=== PATIENT | female | born 1980 | race Caucasian/White ===

== ENCOUNTER 2018-02-12 20:40 | Emergency (ER) | payer MEDICARE, OTHER ==
--- NOTE | 2018-02-12 22:12 | ED ---
General Adult HPI - General Source: patient, RN notes reviewed Mode of arrival: ambulatory Limitations: no limitations <Cody Patel P - Last Filed: 02/12/18 22:19> <Miguelina Rey P - Last Filed: 02/14/18 05:00> - General Chief complaint: Skin/Abscess/Foreign Body Stated complaint: cyst Time Seen by Provider: 02/12/18 21:48 - History of Present Illness Initial comments: 37-year-old female presents to the emergency department for a chief complaint of abscess on her gluteal cleft x 2 hours. Patient states she was went to the bathroom when she noticed her gluteal cleft was painful. Patient states it is draining. Patient denies fevers or chills at home. Patient denies this ever happening before. Patient denies any abscesses anywhere else. Patient denies any current antibiotic use. Patient has no other complaints at this time including shortness of breath, chest pain, abdominal pain, nausea or vomiting, headache, or visual changes. (Cody Patel) - Related Data Home Medications Medication Instructions Recorded Confirmed Atomoxetine HCl [Strattera] 03/30/16 Divalproex Sodium 03/30/16 Methylphenidate HCl 03/30/16 [Methylphenidate ER] Paliperidone [Invega] 03/30/16 lamoTRIgine 03/30/16 Previous Rx's Medication Instructions Recorded Hydrocodone/Acetaminophen [[place] 1 tab PO Q6HR PRN #20 tab 03/30/16 5-325] Sulfamethox-Tmp 800-160Mg [Bactrim 1 each PO Q12HR #20 tab 03/30/16 Ds] Cephalexin [Keflex] 500 mg PO Q12HR #20 cap 02/12/18 Sulfamethox-Tmp 800-160Mg [Bactrim 1 tab PO Q12HR #20 tab 02/12/18 DS 800-160 mg] Allergies Allergy/AdvReac Type Severity Reaction Status Date / Time No Known Allergies Allergy Verified 02/12/18 21:02 Review of Systems ROS Other: All systems not noted in ROS Statement are negative. <Cody Patel P - Last Filed: 02/12/18 22:19> ROS Other: All systems not noted in ROS Statement are negative. <Miguelina Rey P - Last Filed: 02/14/18 05:00> ROS Statement: Those systems with pertinent positive or pertinent negative responses have been documented in the HPI. Past Medical History Past Medical History: Seizure Disorder History of Any Multi-Drug Resistant Organisms: None Reported Past Surgical History: No Surgical Hx Reported Past Psychological History: Bipolar, Depression Smoking Status: Current every day smoker Past Alcohol Use History: Occasional Past Drug Use History: Marijuana <Cody Patel P - Last Filed: 02/12/18 22:19> General Exam Limitations: no limitations General appearance: alert, in no apparent distress Head exam: Present: atraumatic, normocephalic, normal inspection Eye exam: Present: normal appearance. Absent: scleral icterus, conjunctival injection ENT exam: Present: normal exam, mucous membranes moist Neck exam: Present: normal inspection, full ROM. Absent: tenderness, meningismus, lymphadenopathy Respiratory exam: Present: normal lung sounds bilaterally. Absent: respiratory distress, wheezes, rales, rhonchi, stridor Cardiovascular Exam: Present: regular rate, normal rhythm, normal heart sounds. Absent: systolic murmur, diastolic murmur, rubs, gallop, clicks Skin exam: Present: rash (Patient has a 1 cm x 1 cm abscess on the right gluteal cleft with a drainage tract. Purulent material is currently draining. No signs of a cellulitis or spreading redness. No streaking redness.) <Cody Patel P - Last Filed: 02/12/18 22:19> Vital Signs 02/12/18 02/12/18 20:59 22:25 Temperature 98.3 F 98.5 F Pulse Rate 99 98 Respiratory 16 18 Rate Blood Pressure 132/80 136/78 O2 Sat by Pulse 99 98 Oximetry Medical Decision Making <Cody Patel P - Last Filed: 02/12/18 22:19> <Miguelina Rey P - Last Filed: 02/14/18 05:00> - Medical Decision Making 37-year-old female presents to the emergency department for a chief complaint of abscess of the gluteal cleft. Patient has not had this before. No fevers or chills at home. Patient just noticed this today. On exam there is a 1 cm x 1 cm abscess on the right gluteal cleft, freely draining through a tract. At this point as it is draining it does not to be incised and drained. Patient will be put on antibiotics to prevent any cellulitis. However, no evidence of a cellulitis at this time. She will also follow up with general surgery. Patient will return to the emergency Department if she has any worsening symptoms, increasing size in the abscess, or is developing fevers or chills. ( Cody Patel) I was available for consultation in the emergency department. The history and physical exam were done by the midlevel provider. I was consulted for this patient's care. I reviewed the case with the midlevel provider and based on their presentation of the patient, I agree with the assessment, medical decision making and plan of care as documented. (Miguelina Rey) Disposition Is patient prescribed a controlled substance at d/c from ED?: No Time of Disposition: 22:10 <Cody Patel - Last Filed: 02/12/18 22:19> <Miguelina Rey - Last Filed: 02/14/18 05:00> Clinical Impression: Pilonidal sinus with abscess Disposition: HOME SELF-CARE Condition: Good Instructions: Abscess (ED) Additional Instructions: Please take antibiotics as directed. Please apply warm compress to area every few hours. Follow up with general surgeon in 1-2 days. Return to the emergency department if you have any worsening symptoms. Prescriptions: Cephalexin [Keflex] 500 mg PO Q12HR #20 cap Sulfamethox-Tmp 800-160Mg [Bactrim DS 800-160 mg] 1 tab PO Q12HR #20 tab Referrals: Chiara Ferreira MD [STAFF PHYSICIAN] - 1-2 days
[2018-02-12 22:26] VITALS: BP 136/78; PULSE 98; RESP 18; TEMP 98.5
== END 2018-02-12 22:25 | disposition home or self-care (01) ==
LOC: EC 20:40
DX: L05.01 Pilonidal cyst with abscess (principal); G40.909 Epilepsy, unspecified, not intractable, without status epilepticus; F31.9 Bipolar disorder, unspecified; F17.200 Nicotine dependence, unspecified, uncomplicated; Z79.899 Other long term (current) drug therapy
CPT/HCPCS: 99282

== ENCOUNTER 2018-03-12 12:05 | Emergency (ER) | payer MEDICARE, OTHER ==
[2018-03-12 12:31] VITALS: TEMP 98.1
[2018-03-12] MEDS ORDERED: DIPH,PERTUS(ACELL)TETVAC-LF 0.5 ML VIAL IM ONE (12:48)
--- NOTE | 2018-03-12 13:26 | ED ---
General Adult HPI - General Chief complaint: Wound/Laceration Stated complaint: Small Lac on Hand Time Seen by Provider: 03/12/18 13:14 Source: patient, RN notes reviewed Mode of arrival: ambulatory Limitations: no limitations - History of Present Illness Initial comments: Patient 37-year-old female presented to the emergency room today with a chief complaint of a laceration to the thenar eminence of the left hand. She does admit that she was sitting down a tray and extend cut herself. Patient states unsure of her tetanus status. She denies any other complaints. Patient denies any recent fever, chills, shortness of breath, chest pain, back pain, abdominal pain, nausea or vomiting, numbness or tingling, dysuria or hematuria, constipation or diarrhea, headaches or visual changes, or any other complaints. - Related Data Home Medications Medication Instructions Recorded Confirmed Atomoxetine HCl [Strattera] 80 mg PO DAILY 03/30/16 03/12/18 Divalproex Sodium 500 mg PO DAILY 03/30/16 03/12/18 Methylphenidate HCl 27 mg PO DAILY 03/30/16 03/12/18 [Methylphenidate ER] Paliperidone [Invega] 3 mg PO DAILY 03/30/16 03/12/18 lamoTRIgine 200 mg PO DAILY 03/30/16 03/12/18 Allergies Allergy/AdvReac Type Severity Reaction Status Date / Time No Known Allergies Allergy Verified 03/12/18 12:31 Review of Systems ROS Statement: Those systems with pertinent positive or pertinent negative responses have been documented in the HPI. ROS Other: All systems not noted in ROS Statement are negative. Past Medical History Past Medical History: Seizure Disorder History of Any Multi-Drug Resistant Organisms: None Reported Past Surgical History: No Surgical Hx Reported Past Psychological History: Bipolar, Depression Smoking Status: Current every day smoker Past Alcohol Use History: Occasional Past Drug Use History: Marijuana General Exam - General Exam Comments Initial Comments: General: The patient is awake and alert, in no distress, and does not appear acutely ill. Neck: The neck is supple, there is no tenderness or JVD. Musculoskeletal: Full range motion. Sensation intact. Pulses 2+. Strength 5/ 5. Neurological: A&O x 3. CN II-XII intact, There are no obvious motor or sensory deficits. Coordination appears grossly intact. Speech is normal. Skin: 1 cm linear laceration to the thenar eminence. No active bleeding. Wound edges are approximated. Psychiatric: Normal mood and affect. Limitations: no limitations Course Vital Signs 03/12/18 12:29 Temperature 98.1 F Pulse Rate 113 H Respiratory 18 Rate Blood Pressure 108/67 O2 Sat by Pulse 95 Oximetry Disposition Clinical Impression: Laceration Disposition: HOME SELF-CARE Condition: Good Instructions: Laceration (ED) Additional Instructions: Please resides infection. Please return to emergency room for any signs of infection or any other concern. Is patient prescribed a controlled substance at d/c from ED?: No Referrals: [facility] [Primary Care Provider] - 1-2 days Time of Disposition: 13:22
[2018-03-12 13:33] VITALS: BP 133/56; PULSE 98; RESP 20
== END 2018-03-12 13:32 | disposition home or self-care (01) ==
LOC: EC 12:05
DX: S61.412A Laceration without foreign body of left hand, initial encounter (principal); Z23 Encounter for immunization; G40.909 Epilepsy, unspecified, not intractable, without status epilepticus; F31.9 Bipolar disorder, unspecified; F17.200 Nicotine dependence, unspecified, uncomplicated; Z79.899 Other long term (current) drug therapy; W45.8XXA Other foreign body or object entering through skin, initial encounter
CPT/HCPCS: 90471; 90715; 99282

== ENCOUNTER 2018-04-18 10:24 | Emergency (ER) | payer MEDICARE, OTHER ==
[2018-04-18 10:39] VITALS: TEMP 97.6
[2018-04-18] MEDS ORDERED: IPRATROPIUM-ALBUTEROL 3 ML NEB INHALATION STA (10:55)
[2018-04-18] MEDS ORDERED: PROMETHAZ-COD 6.25-10 MG/5 ML 5 ML CUP PO STA (10:55)
[2018-04-18] MEDS ORDERED: methylPREDNISolone SOD SUCCI 125 MG/2 ML VIAL IM ONE (10:55)
[2018-04-18] MEDS ORDERED: guaiFENesin-DM 600/30MG 1 EACH TAB.ER.12H PO STA (10:56)
--- NOTE | 2018-04-18 11:37 | XR ---
EXAMINATION TYPE: XR chest 2V DATE OF EXAM ORDERED: 04/18/2018 HISTORY: Pain. REFERENCE: None. FINDINGS: The lungs are clear. Pleural spaces are clear. Heart size is normal. IMPRESSION: NORMAL CHEST.
--- NOTE | 2018-04-18 12:11 | ED ---
URI HPI - General Chief Complaint: Upper Respiratory Infection Stated Complaint: Cough Time Seen by Provider: 04/18/18 10:52 Source: patient, RN notes reviewed, old records reviewed Mode of arrival: ambulatory Limitations: no limitations - History of Present Illness Initial Comments: Patient is a 37-year-old female who presents emergency department today what you can play of one month of severe coughing. She reports that she'll have coughing fits to put Afia on it. Patient is a smoker. Patient reports that she has had occasional fevers or chills. She say it's an occasional sore throat due to coughing. Patient has had no travel history. No exposure to people with pneumonia that she's aware. - Related Data Home Medications Medication Instructions Recorded Confirmed Atomoxetine HCl [Strattera] 80 mg PO DAILY 03/30/16 03/12/18 Divalproex Sodium 500 mg PO DAILY 03/30/16 03/12/18 Methylphenidate HCl 27 mg PO DAILY 03/30/16 03/12/18 [Methylphenidate ER] Paliperidone [Invega] 3 mg PO DAILY 03/30/16 03/12/18 lamoTRIgine 200 mg PO DAILY 03/30/16 03/12/18 Previous Rx's Medication Instructions Recorded Albuterol Inhaler [Ventolin Hfa 1 - 2 puff INHALATION RT-Q6H PRN 04/18/18 Inhaler] #1 inhaler Azithromycin [Zithromax Z-pack] 250 mg PO DIRECTED #6 tab 04/18/18 guaiFENesin-DM 600/30MG [Mucinex 1 each PO Q12HR #20 tab.er.12h 04/18/18 Dm] predniSONE 10 mg PO DAILY #15 tab 04/18/18 Allergies Allergy/AdvReac Type Severity Reaction Status Date / Time No Known Allergies Allergy Verified 03/12/18 12:31 Review of Systems ROS Statement: Those systems with pertinent positive or pertinent negative responses have been documented in the HPI. ROS Other: All systems not noted in ROS Statement are negative. Constitutional: Reports: fever. Denies: weight change Eyes: Denies: eye pain ENT: Reports: throat pain Respiratory: Reports: cough, dyspnea, wheezes. Denies: hemoptysis, stridor Cardiovascular: Denies: chest pain, palpitations, dyspnea on exertion Endocrine: Denies: fatigue Gastrointestinal: Reports: vomiting. Denies: abdominal pain Genitourinary: Denies: urgency Skin: Denies: rash Neurological: Denies: headache Past Medical History Past Medical History: Seizure Disorder History of Any Multi-Drug Resistant Organisms: None Reported Past Surgical History: No Surgical Hx Reported Past Psychological History: Bipolar, Depression Smoking Status: Current some day smoker Past Alcohol Use History: Occasional Past Drug Use History: Marijuana General Exam - General Exam Comments Initial Comments: 37 year old female. No acute distress. Developemental delay. Limitations: no limitations General appearance: alert, in no apparent distress Head exam: Present: atraumatic, normocephalic, normal inspection Eye exam: Present: normal appearance, PERRL, EOMI. Absent: scleral icterus, conjunctival injection, periorbital swelling ENT exam: Present: normal exam, normal oropharynx, mucous membranes moist Neck exam: Present: normal inspection. Absent: tenderness, meningismus, lymphadenopathy Respiratory exam: Present: wheezes, rhonchi. Absent: normal lung sounds bilaterally Cardiovascular Exam: Present: regular rate, normal rhythm, normal heart sounds. Absent: systolic murmur, diastolic murmur, rubs, gallop, clicks Extremities exam: Present: normal inspection, full ROM, normal capillary refill. Absent: tenderness, pedal edema, joint swelling, calf tenderness Psychiatric exam: Present: normal affect, normal mood Skin exam: Present: warm, dry, intact, normal color. Absent: rash Course Vital Signs 04/18/18 04/18/18 04/18/18 10:33 11:03 11:17 Temperature 97.6 F Pulse Rate 102 H 76 78 Respiratory 18 Rate Blood Pressure 114/78 O2 Sat by Pulse 96 Oximetry 04/18/18 12:19 Temperature Pulse Rate 72 Respiratory 19 Rate Blood Pressure 136/76 O2 Sat by Pulse 100 Oximetry Medical Decision Making - Medical Decision Making 37 year old female with one month of cough, presents with diffuse rhonchi, wheezing. She is a smoker. CXR was normal. She was given double douneb treatment and IM solumedrol and is feeling better. Also given mucinex. Patient will be discharged with steroids, azithromycin, mucinex, and albuterol inhaler. Discussed PCP follow up and return parameters were dsicussed. - Radiology Data Radiology results: report reviewed Normal CXR noted. No evidence of pneumothorax, pleural effusion, pneumonia, or osseous changes. Disposition Clinical Impression: Bronchitis Disposition: HOME SELF-CARE Condition: Good Instructions: Acute Bronchitis (ED) Additional Instructions: Patient is advised to take the medication as prescribed. Follow-up with your primary care physician. Patient must discontinue smoking. Return to the emergency department if any alarming signs or symptoms occur. Prescriptions: Albuterol Inhaler [Ventolin Hfa Inhaler] 1 - 2 puff INHALATION RT-Q6H PRN #1 inhaler PRN Reason: Shortness Of Breath Azithromycin [Zithromax Z-pack] 250 mg PO DIRECTED #6 tab guaiFENesin-DM 600/30MG [Mucinex Dm] 1 each PO Q12HR #20 tab.er.12h predniSONE 10 mg PO DAILY #15 tab Is patient prescribed a controlled substance at d/c from ED?: No Referrals: [facility] [Primary Care Provider] - 1-2 days Time of Disposition: 12:10
[2018-04-18 12:20] VITALS: BP 136/76; PULSE 72; RESP 19
== END 2018-04-18 12:20 | disposition home or self-care (01) ==
LOC: EC 10:24
DX: J40 Bronchitis, not specified as acute or chronic (principal); G40.909 Epilepsy, unspecified, not intractable, without status epilepticus; F31.9 Bipolar disorder, unspecified; F17.200 Nicotine dependence, unspecified, uncomplicated; Z79.899 Other long term (current) drug therapy; Z53.8 Procedure and treatment not carried out for other reasons
CPT/HCPCS: 94640; 71046; 99284; 96372; J2930

== ENCOUNTER 2018-07-19 14:50 | Emergency (ER) | payer MEDICARE, OTHER ==
[2018-07-19 14:58] VITALS: BP 104/76; PULSE 101; RESP 18; TEMP 98.4
--- NOTE | 2018-07-19 15:15 | ED ---
Skin/Abscess/FB HPI - General Chief complaint: Skin/Abscess/Foreign Body Stated complaint: Female Time Seen by Provider: 07/19/18 15:02 Source: patient, RN notes reviewed, old records reviewed Mode of arrival: ambulatory Limitations: no limitations - History of Present Illness Initial comments: Is a 37-year-old female with a developmental delay presents for his work today with complaints of infection in her buttocks. Patient reports that she's had this before. She states that she's noticed some drainage and bleeding and buttocks. Patient states that she has had straining for the past few days. She denies any chest distress by fevers or chills. She denies a change in urination or bowel habits. - Related Data Home Medications Medication Instructions Recorded Confirmed Atomoxetine HCl [Strattera] 80 mg PO DAILY 03/30/16 03/12/18 Divalproex Sodium 500 mg PO DAILY 03/30/16 03/12/18 Methylphenidate HCl 27 mg PO DAILY 03/30/16 03/12/18 [Methylphenidate ER] Paliperidone [Invega] 3 mg PO DAILY 03/30/16 03/12/18 lamoTRIgine 200 mg PO DAILY 03/30/16 03/12/18 Previous Rx's Medication Instructions Recorded Albuterol Inhaler [Ventolin Hfa 1 - 2 puff INHALATION RT-Q6H PRN 04/18/18 Inhaler] #1 inhaler Azithromycin [Zithromax Z-pack] 250 mg PO DIRECTED #6 tab 04/18/18 guaiFENesin-DM 600/30MG [Mucinex 1 each PO Q12HR #20 tab.er.12h 04/18/18 Dm] predniSONE 10 mg PO DAILY #15 tab 04/18/18 Mupirocin 2% Oint [Bactroban 2% 1 applic TOPICAL TID #60 gm 07/19/18 Oint] Sulfamethox-Tmp 800-160Mg [Bactrim 1 tab PO Q12HR #20 tab 07/19/18 DS 800-160 mg] Allergies Allergy/AdvReac Type Severity Reaction Status Date / Time No Known Allergies Allergy Verified 07/19/18 14:54 Review of Systems ROS Statement: Those systems with pertinent positive or pertinent negative responses have been documented in the HPI. ROS Other: All systems not noted in ROS Statement are negative. Past Medical History Past Medical History: Seizure Disorder History of Any Multi-Drug Resistant Organisms: None Reported Past Surgical History: No Surgical Hx Reported Past Psychological History: Bipolar, Depression Smoking Status: Current some day smoker Past Alcohol Use History: Occasional Past Drug Use History: Marijuana General Exam - General Exam Comments Initial Comments: 37-year-old female. Alert and oriented. No distress. General: Well appearing, well nourished, in no distress. Oriented x 3, normal mood and affect . Ambulating without difficulty. Skin: Good turgor, no rash, unusual bruising or prominent lesions Hair: Normal texture and distribution. HEENT: Head: Normocephalic, atraumatic, no visible or palpable masses, depressions, or scaring. Eyes: Visual acuity intact, conjunctiva clear, sclera non-icteric, EOM intact, PERRL. Ears: EACs clear, TMs translucent & cone of light visualized. hearing intact. Nose: No external lesions, mucosa non-inflamed, septum and turbinates normal Mouth: Mucous membranes moist, no mucosal lesions. Teeth/Gums: No obvious caries or periodontal disease. No gingival inflammation or significant resorption. Pharynx: Mucosa non-inflamed, no tonsillar hypertrophy or exudate Neck: Supple, without lesions, bruits, or adenopathy, thyroid non-enlarged and non-tender Heart: No cardiomegaly or thrills; regular rate and rhythm, no murmur or gallop Lungs: Clear to auscultation and percussion Abdomen: Bowel sounds normal, no tenderness, organomegaly, masses, or hernia Back: Spine normal without deformity. She has a libertarian draining pilonidal abscess. No area of fluctuance that can be drained. No bleeding at the site. Extremities: No amputations or deformities, cyanosis, edema or varicosities, peripheral pulses intact Musculoskeletal: Normal gait and station. No misalignment, asymmetry, crepitation, defects, tenderness, masses, effusions, decreased range of motion, instability, atrophy or abnormal strength or tone in the head, neck, spine, ribs , pelvis or extremities. Neurologic: CN 2-12 normal. Sensation to pain, touch, and proprioception normal. DTRs normal in upper and lower extremities. No pathologic reflexes. Psychiatric: Oriented X3, intact recent and remote memory, judgment and insight , normal mood and affect. Limitations: no limitations Course Vital Signs 07/19/18 14:54 Temperature 98.4 F Pulse Rate 101 H Respiratory 18 Rate Blood Pressure 104/76 O2 Sat by Pulse 98 Oximetry Medical Decision Making - Medical Decision Making 37 rolled female present today with complaints of a pilonidal abscess. Patient site his or any open and draining. There is no bleeding at this time. Discussed that does not need to be cut open further at this time. Did discuss the Patient will be started on antibiotics and antibiotic cream and was doing warm compresses over the area. Patient has been advised to follow-up with a surgeon. Patient agrees to treatment plan will comply. Disposition Clinical Impression: Pilonidal abscess Disposition: HOME SELF-CARE Condition: Good Instructions (If sedation given, give patient instructions): Pilonidal Cyst (ED ) Additional Instructions: Patient advised to take antibiotics. Follow-up with surgeon. We'll apply warm compresses over the area. Return to the emergency department if any alarming signs or symptoms occur. Prescriptions: Mupirocin 2% Oint [Bactroban 2% Oint] 1 applic TOPICAL TID #60 gm Sulfamethox-Tmp 800-160Mg [Bactrim DS 800-160 mg] 1 tab PO Q12HR #20 tab Is patient prescribed a controlled substance at d/c from ED?: No Referrals: [facility] [Primary Care Provider] - 1-2 days Yusuf Roberts MD [STAFF PHYSICIAN] - 1-2 days Time of Disposition: 15:15
== END 2018-07-19 15:18 | disposition home or self-care (01) ==
LOC: EC 14:50
DX: L05.01 Pilonidal cyst with abscess (principal); G40.909 Epilepsy, unspecified, not intractable, without status epilepticus; F31.9 Bipolar disorder, unspecified; F17.200 Nicotine dependence, unspecified, uncomplicated; Z79.899 Other long term (current) drug therapy
CPT/HCPCS: 99283

== ENCOUNTER 2019-03-26 19:47 | Emergency (ER) | payer MEDICARE, OTHER ==
--- NOTE | 2019-03-26 20:14 | ED ---
Psych HPI - General Chief Complaint: Psychiatric Symptoms Stated Complaint: Mental Health Source: patient, police Mode of arrival: ambulatory - History of Present Illness Initial Comments: 38 yo female presenting for court ordered pickup for psych evaluation. Patient has history of bipolar. Patient states she is compliant with meds tries to sucidial or homicidal ideations. Has hallucinations or hearing voices. Patient denies any insomnia. Patient said she is unsure why she is here. Had a court ordered pickup because her neighbor wrote a note petitioning patient for psychiatric evaluation. Neighbor states that patient appears acutely psychotic. Patient does not appear acutely psychotic and very cooperative on arrival. No complaints appears well patient is not intoxicated. - Related Data Home Medications Medication Instructions Recorded Confirmed lamoTRIgine 200 mg PO BID 03/30/16 03/26/19 Atomoxetine HCl [Strattera] 100 mg PO HS 03/26/19 03/26/19 Escitalopram [Lexapro] 20 mg PO DAILY 03/26/19 03/26/19 Melatonin 3 mg PO HS 03/26/19 03/26/19 Paliperidone [Invega] 3 mg PO HS 03/26/19 03/26/19 Allergies Allergy/AdvReac Type Severity Reaction Status Date / Time No Known Allergies Allergy Verified 03/26/19 20:27 Review of Systems ROS Statement: Those systems with pertinent positive or pertinent negative responses have been documented in the HPI. ROS Other: All systems not noted in ROS Statement are negative. Past Medical History Past Medical History: Seizure Disorder History of Any Multi-Drug Resistant Organisms: None Reported Past Surgical History: No Surgical Hx Reported Past Psychological History: Bipolar, Depression Smoking Status: Current some day smoker Past Alcohol Use History: Occasional Past Drug Use History: Marijuana General Exam - General Exam Comments Initial Comments: General: The patient is awake and alert, in no distress, and does not appear acutely ill. Eye: Pupils are equal, round and reactive to light, extra-ocular movements are intact. No nystagmus. There is normal conjunctiva bilaterally. No signs of icterus. Ears, nose, mouth and throat: There are moist mucous membranes and no oral lesions. Neck: The neck is supple, there is no tenderness or JVD. Cardiovascular: There is a regular rate and rhythm. No murmur, rub or gallop is appreciated. Respiratory: Lungs are clear to auscultation, respirations are non-labored, breath sounds are equal. No wheezes, stridor, rales, or rhonchi. Gastrointestinal: Soft, non-distended, non-tender abdomen without masses or organomegaly noted. There is no rebound or guarding present. Musculoskeletal: Normal ROM, no tenderness. Strength 5/5. Sensation intact. Pulses equal bilaterally 2+. Neurological: A&O x 3. CN II-XII intact, There are no obvious motor or sensory deficits. Coordination appears grossly intact. Speech is normal. Skin: Skin is warm and dry and no rashes or lesions are noted. Psychiatric: Cooperative, appropriate mood & affect, normal judgment. Limitations: no limitations Course Vital Signs 03/26/19 03/26/19 19:51 21:12 Temperature 97.3 F L 98.6 F Pulse Rate 118 H 81 Respiratory 18 17 Rate Blood Pressure 130/84 145/85 O2 Sat by Pulse 98 99 Oximetry Medical Decision Making - Medical Decision Making Very well-appearing 38-year-old female history of bipolar. Compliant with medications. There was a note written a palpation by a neighbor, it is known that patient frequently argues with this neighbor. There is not appear to be a reason why patient was ordered for psychiatric evaluation. Patient is not suicidal or homicidal. Patient has not been an physical altercations or endangering other people's lives. Patient denies any complaints. She appears well she does not appear acutely psychotic. Patient is not intoxicated. Does not appear to be under the influence of drugs. Physical examination unremarkable. ETOH (-). EPS clear for evaluation. EPS contacted [facility]/psychiatrist recommended discharge with outpatient f/u at [facility].Discussed case with Bob Cerda pt discharged appearing well. Disposition Clinical Impression: Evaluation by psychiatric service required Disposition: HOME SELF-CARE Condition: Good Additional Instructions: Please use medication as discussed. Please follow-up with family doctor in the next 2 days. Please return to emergency room if the symptoms increase or worsen or for any other concerns. Is patient prescribed a controlled substance at d/c from ED?: No Referrals: None,Stated [Primary Care Provider] - 1-[facility] days [facility] - 1-2 days Time of Disposition: 20:56
[2019-03-26 21:15] VITALS: BP 145/85; PULSE 81; RESP 17; TEMP 98.6
== END 2019-03-26 21:15 | disposition home or self-care (01) ==
LOC: EC 19:47
DX: Z00.8 Encounter for other general examination (principal); R45.851 Suicidal ideations; R45.850 Homicidal ideations; R44.0 Auditory hallucinations; F31.9 Bipolar disorder, unspecified; F17.200 Nicotine dependence, unspecified, uncomplicated; G40.909 Epilepsy, unspecified, not intractable, without status epilepticus; Z79.899 Other long term (current) drug therapy
CPT/HCPCS: 82075; 99285

== ENCOUNTER 2023-03-30 14:19 | Emergency (ER) | payer MEDICARE, OTHER ==
--- NOTE | 2023-03-30 14:36 | ED ---
Female Urogenital HPI - General Source: patient, RN notes reviewed Mode of arrival: ambulatory Limitations: no limitations - History of Present Illness MD Complaint: possible STD <Serena Franklin - Last Filed: 03/30/23 14:37> <Rafael Hodge - Last Filed: 03/30/23 16:12> - General Chief complaint: Urogenital Stated complaint: STD testing Time Seen by Provider: 03/30/23 14:37 - History of Present Illness Initial comments: This is a 42 year old female who presents to the emergency department for STD testing. She had sexual intercourse with a new individual and was later told that he was also having sex with other women, and is concerned about brad an STD, and would like to be tested. Denies any pelvic pain, vaginal bleeding, or vaginal discharge. (Serena Franklin) A 42-year-old female presents to the ED with chief complaint of STD testing. Patient states that she recently had sex with a new partner. States that she heard from another person that this person she had sex with may have had sex with another person known to have gonorrhea. Reports that since having sex with this person has not had any vaginal discharge, dysuria, vaginal bleeding, lesions, rash, or otherwise has no experienced any new symptoms however is concerned and would like to get tested for STDs. Denies fever. No other complaints. (Rafael Hodge) - Related Data Home Medications Medication Instructions Recorded Confirmed Atomoxetine HCl [Strattera] 100 mg PO HS 03/26/19 08/17/22 Escitalopram [Lexapro] 20 mg PO DAILY 03/26/19 08/17/22 Melatonin 6 mg PO HS 03/26/19 08/17/22 Paliperidone [Invega] 3 mg PO HS 03/26/19 08/17/22 Albuterol Sulfate [Albuterol 2 puff PO RT-QID PRN 08/17/22 08/17/22 Sulfate Hfa] Previous Rx's Medication Instructions Recorded Amoxic-Pot Clav 875-125Mg 1 each PO Q12HR 9 Days #18 tab 08/19/22 [Augmentin 875-125] Aspirin 81 mg PO DAILY 30 Days #30 tab 08/19/22 lamoTRIgine [LaMICtal] 200 mg PO BID 30 Days #120 tab 08/19/22 Allergies Allergy/AdvReac Type Severity Reaction Status Date / Time No Known Allergies Allergy Verified 03/30/23 14:41 Review of Systems ROS Other: All systems not noted in ROS Statement are negative. <Serena Franklin - Last Filed: 03/30/23 14:37> ROS Other: All systems not noted in ROS Statement are negative. <Rafael Hodge - Last Filed: 03/30/23 16:12> ROS Statement: Those systems with pertinent positive or pertinent negative responses have been documented in the HPI. Past Medical History Past Medical History: Seizure Disorder History of Any Multi-Drug Resistant Organisms: None Reported Past Surgical History: No Surgical Hx Reported Additional Past Surgical History / Comment(s): dental Past Psychological History: Bipolar, Depression Smoking Status: Current every day smoker Past Alcohol Use History: Occasional Past Drug Use History: Marijuana <Serena Franklin - Last Filed: 03/30/23 14:37> General Exam <Serena Franklin - Last Filed: 03/30/23 14:37> General appearance: alert, in no apparent distress Eye exam: Present: normal appearance Neck exam: Present: normal inspection Respiratory exam: Present: normal lung sounds bilaterally Cardiovascular Exam: Present: regular rate, normal rhythm GI/Abdominal exam: Present: soft (No Tenderness to palpation. No rebound guarding or rigidity.) External exam: Present: other (Chaperoned by Linda MENDOZA. No discharge. Skin surrounding the cervix appears pink with no lesions. No adnexal tenderness. No cervical tenderness. No lesions.) Neurological exam: Present: alert, oriented X3 Skin exam: Present: warm, dry <Rafael Hodge - Last Filed: 03/30/23 16:12> - General Exam Comments Initial Comments: Visual Physical Exam Vital signs reviewed General: Well-appearing, nontoxic, no acute distress. Head: Normocephalic, atraumatic Eyes: PERRLA, EOMI ENT: Airway patent Chest: Nonlabored breathing Skin: No visual rash, normal skin tone Neuro: Alert and oriented 3 Musculoskeletal: No gross abnormalities I performed the QuickNote portion of this chart. Signed Serena Franklin PA-C. (Serena Franklin) Course Vital Signs 03/30/23 14:35 Temperature 98.1 F Pulse Rate 95 Respiratory 18 Rate Blood Pressure 114/83 O2 Sat by Pulse 96 Oximetry Medical Decision Making <Rafael Hodge - Last Filed: 03/30/23 16:12> - Medical Decision Making Was pt. sent in by a medical professional or institution (ALEX Marcano, SHORER, urgent care, hospital, or [facility]...) When possible be specific @ -No Did you speak to anyone other than the patient for history (EMS, parent, family, police, friend...)? What history was obtained from this source @ -No Did you review nursing and triage notes (agree or disagree)? Why? @ -I reviewed and agree with nursing and triage notes Were old charts reviewed (outside hosp., previous admission, EMS record, old EKG, old radiological studies, urgent care reports/EKG's, [facility] records)? Report findings @ -No old charts were reviewed Differential Diagnosis (chest pain, altered mental status, abdominal pain women, abdominal pain men, vaginal bleeding, weakness, fever, dyspnea, syncope, headache, dizziness, GI bleed, back pain, seizure, CVA, palpatations, mental h ealth, musculoskeletal)? @ -Gonorrhea, chlamydia, syphilis, pelvic inflammatory disease. This is not meant to be an all-inclusive list. EKG interpreted by me (3pts min.). @ -None X-rays interpreted by me (1pt min.). @ -None done CT interpreted by me (1pt min.). @ -None done U/S interpreted by me (1pt. min.). @ -None done What testing was considered but not performed or refused? (CT, X-rays, U/S, labs)? Why? @ -None What meds were considered but not given or refused? Why? @ -None Did you discuss the management of the patient with other professionals (professionals i.e. ALEX Marcano, SHORER, lab, RT, psych nurse, 7th grade social studies teacher, backrest assembler, teacher, gifts officer, case therapist)? Give summary @ -No Was smoking cessation discussed for >3mins.? @ -No Was critical care preformed (if so, how long)? @ -No Were there social determinants of health that impacted care today? How? (Homelessness, low income, unemployed, alcoholism, drug addiction, transportation, low edu. Level, literacy, decrease access to med. care, half-way, rehab)? @ -No Was there de-escalation of care discussed even if they declined (Discuss DNR or withdrawal of care, Hospice)? DNR status @ -No What co-morbidities impacted this encounter? (DM, HTN, Smoking, COPD, CAD, Cancer, CVA, ARF, Chemo, Hep., AIDS, mental health diagnosis, sleep apnea, morbid obesity)? @ -None Was patient admitted / discharged? Hospital course, mention meds given and route, prescriptions, significant lab abnormalities, going to OR and other pertinent info. @ -Discharge 42-year-old female presenting with concerns of STD. Has had no discharge, urinary symptoms, new rash or lesions. Pelvic exam unremarkable. Patient empirically treated for gonorrhea and chlamydia. Swab obtained to test for gonorrhea, chlamydia, Trichomonas. Blood sample obtained to test for syphilis. Patient discharged home in stable condition. Advised follow-up with the health department for comprehensive STD testing. Discussed return precautions with patient who verbalizes agreement. Undiagnosed new problem with uncertain prognosis? @ -No Drug Therapy requiring intensive monitoring for toxicity (Heparin, Nitro, Insulin, Cardizem)? @ -No Were any procedures done? @ -No Diagnosis/symptom? @ -High-risk heterosexual behavior, concern for STD Acute, or Chronic, or Acute on Chronic? @ -Acute Uncomplicated (without systemic symptoms) or Complicated (systemic symptoms)? @ -Uncomplicated Side effects of treatment? @ -No Exacerbation, Progression, or Severe Exacerbation? @ -No Poses a threat to life or bodily function? How? (Chest pain, [place], [place], pneumonia, PE, COPD, DKA, ARF, appy, cholecystitis, CVA, Diverticulitis, Homicidal, Suicidal, threat to staff... and all critical care pts) @ -No (Rafael Hodge) - Lab Data Lab Results 03/30/23 03/30/23 Range/Units 15:00 15:00 Urine Color Colorless Urine Appearance Clear (Clear) Urine pH 6.0 (5.0-8.0) Ur Specific [place] 1.006 (1.001-1.035) Urine Protein Negative (Negative) Urine Glucose (UA) Negative (Negative) Urine Ketones Negative (Negative) Urine Blood Negative (Negative) Urine Nitrite Negative (Negative) Urine Bilirubin Negative (Negative) Urine Urobilinogen <2.0 (<2.0) mg/dL Ur Leukocyte Esterase Negative (Negative) Urine HCG, Qual Not Detected (Not Detectd) Disposition <Serena Franklin - Last Filed: 03/30/23 14:37> Is patient prescribed a controlled substance at d/c from ED?: No Time of Disposition: 16:12 <Rafael Hodge - Last Filed: 03/30/23 16:12> Clinical Impression: High risk heterosexual behavior, Encounter for screening for infections with a predominantly sexual mode of transmission Disposition: HOME SELF-CARE Condition: Good Instructions (If sedation given, give patient instructions): Sexually Transmitted Diseases (ED), Safe Sex Practices (ED) Additional Instructions: Please return to the Emergency Department if symptoms worsen or any other concerns. [facility]errals[facility] [Primary Care Provider] - 1-2 days
[2023-03-30 14:45] VITALS: RESP 18
[2023-03-30 15:06] LABS: Appearance,Urine Clear (Clear); Bilirubin,Urine Negative (Negative); Blood,Urine Negative (Negative); Color,Urine Colorless; Glucose,Urine (UA) Negative (Negative); Ketones,Urine Negative (Negative); Leukocyte Esterase,Urine Negative (Negative); Nitrite,Urine Negative (Negative); Protein,Urine Negative (Negative); Specific Gravity,Urine 1.006 (1.001-1.035); Urobilinogen,Urine <2.0 mg/dL (<2.0)
[2023-03-30] MEDS ORDERED: cefTRIAXone 1,000 MG VIAL (IM USE) IM STA (15:47)
[2023-03-30] MEDS ORDERED: AZITHROMYCIN 500 MG TAB PO STA (15:50)
[2023-03-30 17:16] VITALS: BP 108/71; PULSE 86; TEMP 98.3
[2023-03-31 14:12] LABS: C. trachomatis,PCR Negative (Negative)
[2023-03-31 14:15] LABS: N. gonorrhoeae,PCR Negative (Negative)
== END 2023-03-30 17:07 | disposition home or self-care (01) ==
LOC: EC 14:19
DX: Z11.3 Encounter for screening for infections with a predominantly sexual mode of transmission (principal); Z72.51 High risk heterosexual behavior; F31.9 Bipolar disorder, unspecified; F17.200 Nicotine dependence, unspecified, uncomplicated; F12.90 Cannabis use, unspecified, uncomplicated; Z79.899 Other long term (current) drug therapy
CPT/HCPCS: 36415; 81003; 81025; 87808; 87491; 87591; 86780; 99283; 96372; J0696

== ENCOUNTER 2023-08-13 17:34 | Emergency (ER) | payer MEDICARE, OTHER ==
[2023-08-13 18:47] VITALS: BP 118/71; PULSE 99; RESP 16; TEMP 97.8
--- NOTE | 2023-08-13 20:14 | ED ---
General Adult HPI - General Chief complaint: Recheck/Abnormal Lab/Rx Stated complaint: medication refill/ mental health Time Seen by Provider: 08/13/23 19:13 Source: patient Mode of arrival: ambulatory Limitations: no limitations - History of Present Illness Initial comments: 42-year-old female presenting to the ED with a chief complaint of medication re fill. Patient initially very upset and does not provide history. Eventually, she pulled out the medication list and pointed to her medication and stated that she needs a refill. States she is due to see [facility] on Thursday but cannot wait. Denies chest pain shortness of breath fever chills. No other complaints at this time. - Related Data Home Medications Medication Instructions Recorded Confirmed Melatonin 6 mg PO HS 03/26/19 08/17/22 Previous Rx's Medication Instructions Recorded Amoxic-Pot Clav 875-125Mg 1 each PO Q12HR 9 Days #18 tab 08/19/22 [Augmentin 875-125] Aspirin 81 mg PO DAILY 30 Days #30 tab 08/19/22 Albuterol Sulfate [Albuterol 2 puff PO RT-QID PRN #1 each 04/05/23 Sulfate Hfa] Atomoxetine HCl [Strattera] 100 mg PO HS #14 cap 04/05/23 Escitalopram [Lexapro] 20 mg PO DAILY #14 tab 04/05/23 Fluticasone Propionate 220 Mcg 2 puff INHALATION RT-BID #12 gm 04/05/23 [Flovent 220 Mcg Inhaler] Ibuprofen [Motrin] 400 mg PO Q6HR PRN #30 tab 04/05/23 Melatonin 6 mg PO HS #28 tablet 04/05/23 Paliperidone [Invega] 3 mg PO HS #14 tab 04/05/23 lamoTRIgine [LaMICtal] 200 mg PO BID #56 tab 04/05/23 Ondansetron Odt [Zofran Odt] 8 mg PO Q8HR PRN #15 tab 04/06/23 Escitalopram [Lexapro] 10 mg PO DAILY #6 tablet 08/13/23 Allergies Allergy/AdvReac Type Severity Reaction Status Date / Time No Known Allergies Allergy Verified 04/06/23 22:08 Review of Systems ROS Statement: Those systems with pertinent positive or pertinent negative responses have been documented in the HPI. ROS Other: All systems not noted in ROS Statement are negative. Past Medical History Past Medical History: Seizure Disorder History of Any Multi-Drug Resistant Organisms: None Reported Past Surgical History: No Surgical Hx Reported Additional Past Surgical History / Comment(s): dental Past Psychological History: Bipolar, Depression Smoking Status: Current every day smoker Past Alcohol Use History: Occasional Past Drug Use History: Marijuana General Exam Limitations: no limitations General appearance: alert, anxious Neck exam: Present: normal inspection Respiratory exam: Present: normal lung sounds bilaterally Cardiovascular Exam: Present: regular rate, normal rhythm GI/Abdominal exam: Present: soft Neurological exam: Present: alert Psychiatric exam: Present: agitated Skin exam: Present: warm, dry Course Vital Signs 08/13/23 17:37 Temperature 97.8 F Pulse Rate 99 Respiratory 16 Rate Blood Pressure 118/71 O2 Sat by Pulse 97 Oximetry Medical Decision Making - Medical Decision Making Was pt. sent in by a medical professional or institution (Dr. PA, TIME STUDY STATISTICIAN, urgent care, hospital, or senior living...) When possible be specific @ -No Did you speak to anyone other than the patient for history (EMS, parent, family, police, friend...)? What history was obtained from this source @ -No Did you review nursing and triage notes (agree or disagree)? Why? @ -I reviewed and agree with nursing and triage notes Were old charts reviewed (outside hosp., previous admission, EMS record, old EKG, old radiological studies, urgent care reports/EKG's, senior living records)? Report findings @ -Prior charts reviewed showing patient was previously on escitalopram 20 mg. Her new medication chart shows that she is on 10 mg. This is verified with patient. Differential Diagnosis (chest pain, altered mental status, abdominal pain women, abdominal pain men, vaginal bleeding, weakness, fever, dyspnea, syncope, headache, dizziness, GI bleed, back pain, seizure, CVA, palpatations, mental health, musculoskeletal)? @ -Not applicable EKG interpreted by me (3pts min.). @ -None X-rays interpreted by me (1pt min.). @ -None done CT interpreted by me (1pt min.). @ -None done U/S interpreted by me (1pt. min.). @ -None done What testing was considered but not performed or refused? (CT, X-rays, U/S, stephanie bryan)? Why? @ -None What meds were considered but not given or refused? Why? @ -None Did you discuss the management of the patient with other professionals (professionals i.e. , PA, TIME STUDY STATISTICIAN, lab, RT, psych nurse, social worker clinical, hand packer, teacher, commanding officer traffic division, disease case manager)? Give summary @ -No Was smoking cessation discussed for >3mins.? @ -No Was critical care preformed (if so, how long)? @ -No Were there social determinants of health that impacted care today? How? (Homelessness, low income, unemployed, alcoholism, drug addiction, transportation, low edu. Level, literacy, decrease access to med. care, snf, rehab)? @ -No Was there de-escalation of care discussed even if they declined (Discuss DNR or withdrawal of care, Hospice)? DNR status @ -No What co-morbidities impacted this encounter? (DM, HTN, Smoking, COPD, CAD, Cancer, CVA, ARF, Chemo, Hep., AIDS, mental health diagnosis, sleep apnea, morbid obesity)? @ -None Was patient admitted / discharged? Hospital course, mention meds given and route, prescriptions, significant lab abnormalities, going to OR and other pertinent info. @ -Discharge 42-year-old female presenting to the ED with a chief complaint of medication refill. Patient reports she has follow-up on Thursday however cannot wait until then. On exam, patient is very agitated. Patient has reportedly been very verbally aggressive to other staff prior to my arrival. Patient gives limited history at this time however does not have other complaints. Patient provided short refill for her escitalopram. Advise follow-up with [facility] as scheduled. Undiagnosed new problem with uncertain prognosis? @ -No Drug Therapy requiring intensive monitoring for toxicity (Heparin, Nitro, Insulin, Cardizem)? @ -No Were any procedures done? @ -No Diagnosis/symptom? @ -Medication Refill Acute, or Chronic, or Acute on Chronic? @ -Acute Uncomplicated (without systemic symptoms) or Complicated (systemic symptoms)? @ -Uncomplicated Side effects of treatment? @ -No Exacerbation, Progression, or Severe Exacerbation? @ -No Poses a threat to life or bodily function? How? (Chest pain, USA, [place], pneumonia, PE, COPD, DKA, ARF, appy, cholecystitis, CVA, Diverticulitis, Homicidal, Suicidal, threat to staff... and all critical care pts) @ -No Disposition Clinical Impression: Medication refill Disposition: HOME SELF-CARE Condition: Good Additional Instructions: Please return to the Emergency Department if symptoms worsen or any other concerns. Please follow-up with [facility] as scheduled. Prescriptions: Escitalopram [Lexapro] 10 mg PO DAILY #6 tablet Is patient prescribed a controlled substance at d/c from ED?: No Referrals: [facility] [Primary Care Provider] - 1-2 days Time of Disposition: 20:23
== END 2023-08-13 20:27 | disposition home or self-care (01) ==
LOC: EC 17:34
DX: Z76.0 Encounter for issue of repeat prescription (principal); F17.200 Nicotine dependence, unspecified, uncomplicated; F12.90 Cannabis use, unspecified, uncomplicated; Z86.59 Personal history of other mental and behavioral disorders
CPT/HCPCS: 99284

== ENCOUNTER → 2024-11-11 | Outpatient (CLI) | payer MEDICARE, OTHER ==
--- NOTE | 2024-11-11 14:50 | MM ---
Reason for Exam: Screening (asymptomatic). Baseline mammogram. Patient History: Menarche at age 14. Patient has no children. Mother had breast cancer, age 46. Last menstrual period: 08/14/2024 Risk Values: Juanita 5 year model risk: 1.4%. NCI Lifetime model risk: 18.3%. Prior Study Comparison: Patient's first Mammogram. Tissue Density: The breasts are extremely dense, which lowers the sensitivity of mammography. Findings: Analyzed By CAD. Right breast: There is no suspicious group of microcalcifications or new suspicious mass. Left breast: There is no suspicious group of microcalcifications or new suspicious mass. Overall Assessment: Negative, BI-RAD 1 Management: Screening Mammogram of both breasts in [address] [facility] will attempt to contact patient to return for supplemental views and ultrasound if indicated. Patient should continue monthly self-breast exams. A clinical breast exam by your physician is recommended on an annual basis. This exam should not preclude additional follow-up of suspicious palpable abnormalities. Note on Juanita scores and lifetime risk: 1. A Juanita score greater than 3% is considered moderate risk. If this is the case, consider specialist referral to assess eligibility for a risk reducing agent. 2. If overall lifetime risk for the development of breast cancer is 20% or higher, the patient may qualify for future screening with alternating mammogram and breast MRI. [facility], , 11/11/2024 2:47 PM. Electronically signed and approved by: Marv Barroso DO
== END | disposition home or self-care (01) ==
LOC: RADMAMWWP 11:26
PROVIDERS: ATTEND Internal Medicine Pulmonary Disease
DX: Z12.31 Encounter for screening mammogram for malignant neoplasm of breast (principal); R92.313 Mammographic fatty tissue density, bilateral breasts; Z80.3 Family history of malignant neoplasm of breast
CPT/HCPCS: 77063; 77067